=== PATIENT | female | born 1945 | race Caucasian/White ===

== ENCOUNTER 2018-11-04 12:11 | Emergency (ER) | payer OTHER ==
[~2018-11-04] VITALS: Ht 162.6 cm; Wt 72.6 kg
[~2018-11-04 12:11] MED LIST: ALBU90OI61 INH; BUPR100 PO; FISH1000 PO; GAVILAX17 GM PO; GLUC500 PO; IBUP400 PO; LEVFLO500 PO; LORA1 PO; Multivitamins1 EAC4 PO; OMEP20ER PO; PROM25 PO; Prilosec20 MG PO; VITS
[2018-11-04] MEDS ORDERED: PRAV20 PO (12:41)
[2018-11-04 13:01] LABS: BASOPHILS ABSOLUTE AUTO 0.04 K/mm3 (0.00-0.23); BASOPHILS PERCENT AUTO 1 % (0-2); EOSINOPHILS ABSOLUTE AUTO 0.08 K/mm3 (0.00-0.68); EOSINOPHILS PERCENT AUTO 1 % (0-6); Hemoglobin 12.8 g/dL (11.5-16.0); IMMATURE GRAN ABSOLUTE AUTO 0.02 K/mm3 (0.00-0.10); IMMATURE GRAN PERCENT AUTO 0 % (0-1); LYMPHOCYTES ABSOLUTE AUTO 1.35 K/mm3 (0.84-5.20); LYMPHOCYTES PERCENT AUTO 21 % (21-46); MONOCYTES ABSOLUTE AUTO 0.72 K/mm3 (0.16-1.47); MONOCYTES PERCENT AUTO 11 % (4-13); Mean Corpuscular HGB 31.2 pg (26.0-34.0); Mean Corpuscular HGB Conc 32.8 g/dL (31.5-36.5); Mean Corpuscular Volume 95 fL (80-100); Mean Platelet Volume 11.3 fL (9.1-12.4); NEUTROPHILS ABSOLUTE AUTO 4.29 K/mm3 (1.96-9.15); NEUTROPHILS PERCENT AUTO 66 % (41-73); Platelet Count 223 K/mm3 (150-400); RDW Coefficient Variation 13.2 % (11.7-14.2); RDW Standard Deviation 46.4 fL (35.1-46.3)
[2018-11-04 13:26] LABS: Alanine Aminotransfer (ALT/SGP 23 U/L (12-78); Albumin/Globulin Ratio 1.1 (0.8-1.8); Alk Phos 78 U/L (50-136); Anion Gap 13 mmol/L (6-16); Aspartate Aminotrans (AST/SGOT 22 U/L (12-37); Bilirubin, Total 0.5 mg/dL (0.1-1.0); Blood Urea Nitrogen 25 mg/dL (8-24); Bun/Creatinine Ratio 29.2 (12.0-20.0); CO2, Blood 21 mmol/L (21-32); Calcium, Blood 9.5 mg/dL (8.5-10.1); Chloride, Blood 106 mmol/L (98-108); Creatinine, Blood 0.86 mg/dL (0.40-1.00); Globulin, Blood 3.5 g/dL (2.2-4.0); Glomerular Filtration Rate >60 (60-); Glucose, Blood 89 mg/dL (70-99); Potassium, Blood 3.4 mmol/L (3.5-5.5); Sodium, Blood 140 mmol/L (136-145); Total Protein, Blood 7.5 g/dL (6.4-8.2)
== END 2018-11-04 14:20 | disposition home or self-care (01) ==
LOC: ER 12:11
PROVIDERS: Emergency Medicine
DX: R42 Dizziness and giddiness (principal)
CPT/HCPCS: 36415; 80053; 84484; 85025; 93005; 93010; 99284-25; J7120

== ENCOUNTER 2019-01-02 00:16 | Day surgery (SDC) | payer OTHER ==
[~2019-01-02 00:16] MED LIST changes: +PRAV20 PO
[2019-01-02] MEDS ORDERED: ZINC30 MG PO (09:33)
[2019-01-02] MEDS ORDERED: FISH OIL 1,2001 EAC1 PO (09:34)
[2019-01-02] MEDS ORDERED: CHOL10002 PO (09:34)
--- NOTE | 2019-01-02 11:30 | NUR ---
PT REPORTS HAVING RESPONSE TO THE CORTROSYN AFTER SHE LEFT THE [facility]. [employer] SUPERVISOR FROM [employer] CALLED TO REPORT THAT PT WAS FEELING SHAKY AND COLD. THIS RN SUGGESTED THAT PT MAY WANT TO GO TO ER BUT APPARENTLY PT DECIDED NOT TO. THIS RN CALLED PT AT HOME AT 1125, 2 HOURS AFTER INJECTION, TO CHECK ON HER. PT STS SHE IS FEELING BETTER, STS SHE HAD A HEADACHE AND THAT SHE FELT LIKE SHE DID WHEN SHE STARTED HAVING THESE "EPISODES". PT WILL F/U WITH HER PCP NEXT WEEK.
== END 2019-01-02 09:38 | disposition home or self-care (01) ==
LOC: ATC 00:16
DX: I95.1 Orthostatic hypotension (principal); F32.9 Major depressive disorder, single episode, unspecified; K21.9 Gastro-esophageal reflux disease without esophagitis; E78.5 Hyperlipidemia, unspecified; J45.909 Unspecified asthma, uncomplicated; Z79.899 Other long term (current) drug therapy
CPT/HCPCS: 36415; 80400; 82533; 96372; J0834

== ENCOUNTER 2019-08-12 14:17 | Day surgery (SDC) | payer OTHER ==
[~2019-08-12] VITALS: Ht 162.6 cm; Wt 77.2 kg
[~2019-08-12 14:17] MED LIST changes: +Aspirin EC81 MG PO; +CHOL10002 PO; +FISH OIL 1,2001 EAC1 PO; +ZINC30 MG PO
== END 2019-08-12 16:13 | disposition home or self-care (01) ==
LOC: ORSCSDS 14:17
PROVIDERS: Surgery
PROC: 0DBL8ZX Excision of Transverse Colon, Via Natural or Artificial Opening Endoscopic, Diagnostic (ICD-10-PCS; principal; 2019-08-12 15:30)
DX: Z12.11 Encounter for screening for malignant neoplasm of colon (principal); D12.3 Benign neoplasm of transverse colon; Z86.010 Personal history of colon polyps; K57.30 Diverticulosis of large intestine without perforation or abscess without bleeding; E78.5 Hyperlipidemia, unspecified; F32.9 Major depressive disorder, single episode, unspecified; J45.909 Unspecified asthma, uncomplicated; E66.9 Obesity, unspecified; Z68.30 Body mass index [BMI] 30.0-30.9, adult; Z79.82 Long term (current) use of aspirin; Z79.899 Other long term (current) drug therapy
CPT/HCPCS: 88305; J2704; J7120

== ENCOUNTER 2020-09-08 07:47 | Day surgery (SDC) | payer OTHER ==
[~2020-09-08] VITALS: Ht 162.6 cm; Wt 88.4 kg
[~2020-09-08 07:47] MED LIST changes: +MERIBIN5 MG PO
== END 2020-09-08 09:52 | disposition home or self-care (01) ==
LOC: ORSCSDS 07:47
PROVIDERS: Ophthalmology
PROC: 08RJ3JZ Replacement of Right Lens with Synthetic Substitute, Percutaneous Approach (ICD-10-PCS; principal; 2020-09-08 09:00)
DX: H25.11 Age-related nuclear cataract, right eye (principal); H52.201 Unspecified astigmatism, right eye; J45.909 Unspecified asthma, uncomplicated; K21.9 Gastro-esophageal reflux disease without esophagitis; Z79.82 Long term (current) use of aspirin; E66.9 Obesity, unspecified; Z68.33 Body mass index [BMI] 33.0-33.9, adult
CPT/HCPCS: J2001; J2250; J3010; J3301; J7040; V2632

== ENCOUNTER 2024-07-15 13:21 | Day surgery (SDC) | payer OTHER ==
[~2024-07-15] VITALS: Ht 162.6 cm; Wt 79.8 kg
[~2024-07-15 13:21] MED LIST changes: +Lactated Ringer's 1,000 ML IV ONE; +propofoL 50 ML IV ONE
[2024-07-15] MEDS ORDERED: ATOR40TA (14:20)
[2024-07-15] MEDS ORDERED: Lactated Ringer's 1,000 ML IV ONE (14:56)
[2024-07-15 16:06] VITALS: BP 129/73
== END 2024-07-15 16:06 | disposition home or self-care (01) ==
LOC: ORSCSDS 13:21
PROVIDERS: Surgery
PROC: 0DJD8ZZ Inspection of Lower Intestinal Tract, Via Natural or Artificial Opening Endoscopic (ICD-10-PCS; principal; 2024-07-15 14:45)
DX: Z12.11 Encounter for screening for malignant neoplasm of colon (principal); Z86.0101 Personal history of adenomatous and serrated colon polyps; Z79.82 Long term (current) use of aspirin; Z79.899 Other long term (current) drug therapy
CPT/HCPCS: J2704; J7120